=== PATIENT | female | born 1940 | race Caucasian/White ===

== ENCOUNTER 2017-03-14 13:19 | Emergency (ER) | payer MEDICARE, MEDICAID ==
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
[2017-03-14 13:22] VITALS: BMI 24.7
[2017-03-14 13:40] VITALS: BP 120/76; PULSE 57; RESP 18; TEMP 97.9; O2SAT 99
--- NOTE | 2017-03-14 13:56 | RAD ---
Pelvis and left hip two views History: Injury. Comparison: None available. Findings: Left hip: Moderate degenerative changes with joint space narrowing and subchondral sclerosis. No evidence for acute displaced fracture or dislocation. Calcified phleboliths in the pelvis. Moderate degenerative changes in the lower lumbar spine. Sacrum is obscured by overlying bowel gas. Moderate degenerative changes of the right hip with joint space narrowing and subchondral sclerosis. Mild productive change at right greater trochanter. Impression: Moderate degenerative changes. If pain persists, consider MRI.
== END 2017-03-14 14:31 | disposition home or self-care (01) ==
LOC: C.ER 13:19
DX: S70.02XA Contusion of left hip, initial encounter (principal); V03.90XA Pedestrian on foot injured in collision with car, pick-up truck or van, unspecified whether traffic or nontraffic accident, initial encounter; Y92.410 Unspecified street and highway as the place of occurrence of the external cause; E03.9 Hypothyroidism, unspecified; E11.9 Type 2 diabetes mellitus without complications; E78.00 Pure hypercholesterolemia, unspecified; I10 Essential (primary) hypertension